=== PATIENT | female | born 1980 | race African-American/Black ===

== ENCOUNTER 2024-12-20 15:45 | Emergency (ER) | payer OTHER ==
[~2024-12-20] VITALS: Ht 162.6 cm; Wt 72.6 kg
[2024-12-20] MEDS ORDERED: TDAP [DIPH/PERTUSSIS/TET] 0.5 ML VIAL IM ONE (16:16)
[2024-12-20] MEDS ORDERED: BACI/NEOM/POLY B OINT PKT 1 UDPKT PACKET ONE (16:16)
[2024-12-20] MEDS ORDERED: AMOX-430 PO (16:16)
[2024-12-20] MEDS ORDERED: IBUP-1490 PO (16:16)
[2024-12-20] MEDS: TDAP [DIPH/PERTUSSIS/TET] 0.5 ML VIAL IM ONE (16:20)
[2024-12-20] MEDS: BACI/NEOM/POLY B OINT PKT 1 UDPKT PACKET TP ONE (16:20)
[2024-12-20 16:28] VITALS: BP 122/80; TEMP 98; O2SAT 99
== END 2024-12-20 16:29 | disposition home or self-care (01) ==
LOC: ER 15:45
DX: S61.432A Puncture wound without foreign body of left hand, initial encounter (principal); S61.431A Puncture wound without foreign body of right hand, initial encounter; Z60.2 Problems related to living alone; W54.0XXA Bitten by dog, initial encounter; Y93.89 Activity, other specified; Y92.89 Other specified places as the place of occurrence of the external cause; Y99.8 Other external cause status
CPT/HCPCS: 90715